=== PATIENT | female | born 1975 | race Caucasian/White ===

== ENCOUNTER 2017-02-04 13:08 | Emergency (ER) | payer SELFPAY ==
[2017-02-04 13:22] VITALS: BP 150/74; BMI 38.4
--- NOTE | 2017-02-04 13:58 | DR.GENAD ---
HPI - PCP Primary Care Physician: NFD - HPI Comment HPI Comment: PATIENT ALSO HAVE PERSISTENT COUGH. TOOK ZITHROMAX BUT NO IMPROVEMENT. STILL PERSISTENT COUGH. NOW ALSO HAVING BOWENS, PND AND ORTHOPNEA. NO FEVER. DENIES EDEMA. COUGH NON PRODUCTIVE. - Complaint/Symptoms Chief Complaint Doctors Comments: SOB AND CHEST PAIN TIMES 3 WEEK. Chief Complaint:: PATIENT STATED THAT SHE CAN'T CATCH HER BREATH. SHE FEELS LIKE SHE IS RATTLEING IN HER CHEST. THIS HAS BEEN GOING ON FOR 2 WEEKS AND NOTHING OVER THE COUNTER IS HELPING. - Nurses notes reviewed Nurses Notes Review: Yes - Source History Provided: Patient - Mode of Arrival Mode of Arrival: Ambulatory - Timing Onset of Chief Complaint: 01/21/17 Came on: Suddenly - Duration Duration: Constant Duration: Weeks - Severity Severity: Moderate PMH - PMH Past Medical History: No Past Surgical History: Yes Surgical History: , Tonsillectomy - Family History History of Family Medical Conditions: Yes Family Medical History: Diabetes Mellitus, [place], Hypertension - Social History Does patient currently use any type of tobacco product: No Have you used tobacco products in the last 12 months: No Type of Tobacco Use: None Does any household member use tobacco: No Alcohol Use: None Do you use any recreational Drugs:: No Lives With: Family Lives Where: Home - infectious screening In the last 2 months have you had wt loss of >10#?: NO Have you had fever, night sweats or hemotysis?: No Have you traveled outside the country in the last 6 months?: No Isolation: Standard ROS - Review of Systems Constitutional: Fever, Weakness, Fatigue. negative: Chills Eyes: negative: Eye Pain, Discharge ENTM: Nose Congestion. negative: Ear Pain, Nose Discharge, Throat Pain Respiratoy: Non-Productive Cough, Short of Breath, Wheezing. negative: Hemoptysis Cardiovascular: Chest Pain, Other (BOWENS.). negative: Edema Gastrointestinal/Abdominal: No Symptoms Reported Genitourinary: No Symptoms Reported Neurological: No Symptoms Reported Musculoskeletal: No Symptoms Reported Integumentary: No Symptoms Reported Hematologic/Lymphatic: No Symptoms Reported Endocrine: No Symptoms Reported All Other Systems: Reviewed and Negative PE - Vital Signs Vitals: Temperature 97.3 F Pulse Rate 110 Respiratory Rate 20 Blood Pressure 150/74 O2 Sat by Pulse Oximetry 100 - General Limitations: No Limitations General Appearance: Alert - Head Head Exam: Normal Inspection - Eyes Eye exam: Normal Appearance - ENT ENT Exam: Normal External Ear Exam External Ear Exam: Normal External Inspection TM/Canal Exam: Bilateral Normal Nose Exam: Normal Nose Exam Mouth Exam: Normal Inspection Throat Exam: Tonsillar Erythema - Neck Neck Exam: Normal Inspection - Chest Chest Inspection: Symmetric Chest Wall Rise - Respiratory Respiratory Exam: Respiratory Distress Respiratory Exam: Bilateral Rhonchi, Upper Rhonchi, Lower Rhonchi - Cardiovascular Cardiovascular Exam: Regular Rate, Normal Rhythm, Normal Heart Sounds - Abdominal Exam Abdominal Exam: Normal Bowel Sounds, Soft. negative: Tenderness - Extremities Extremities Exam: Normal Inspection - Back Back Exam: Normal Inspection - Neurologic Neurological Exam: Alert, Oriented X3 - Psychiatric Psychiatric Exam: Normal Affect, Normal Mood - Skin Skin Exam: Normal Color MDM - Additional Information Additional Information Obtained From: Family - Differential Diagnosis Differential Diagnosis: CHEST PAIN, PNEUMONIA, PEUMOTHORAX, BRONCHITIS Course - Treatment Treatment: SEE ORDERS. - Education/Counseling Education/Counseling: Patient, Family, Education Educated On: Diagnosis ROR - Labs Reviewed Result Diagrams: 02/04/17 15:35 02/04/17 15:35 Laboratory: WBC 8.5 X10^3/uL (3.6-10.0) 02/04/17 15:35 RBC 4.40 X10^6/uL (3.5-5.4) 02/04/17 15:35 Hgb 8.3 g/dL (12.0-16.0) L 02/04/17 15:35 Hct 27.7 % (36.0-47.0) L 02/04/17 15:35 MCV 63.0 fL (80.0-100.0) L 02/04/17 15:35 MCH 18.9 pg (27.0-34.0) L 02/04/17 15:35 MCHC 30.0 g/dL (33.0-35.0) L 02/04/17 15:35 RDW 19.5 % (11.6-16.5) H 02/04/17 15:35 Plt Count 347 X10^3/uL (150.0-450.0) 02/04/17 15:35 Plt Count Comment Adequate (ADEQUATE) 02/04/17 15:35 MPV 7.1 fL (7.4-11.0) L 02/04/17 15:35 Neut % 73.3 % (42.0-75.0) 02/04/17 15:35 Lymph % 19.4 % (21.0-51.0) L 02/04/17 15:35 Harnett % 5.1 % (0.0-13.0) 02/04/17 15:35 Eos % 1.6 % (0.9-2.9) 02/04/17 15:35 Baso % 0.6 % (0.2-1.0) 02/04/17 15:35 Neut # 6.2 x10^3/uL (2.2-4.8) H 02/04/17 15:35 Lymph # 1.7 X10^3/uL (1.3-2.9) 02/04/17 15:35 Harnett # 0.4 x10^3/uL (0.3-0.8) 02/04/17 15:35 Eos # 0.1 x10^3/uL (0.0-0.2) 02/04/17 15:35 Baso # 0.1 X10^3/uL (0.0-0.1) 02/04/17 15:35 Absolute Nucleated RBC 0.0 /100WBC 02/04/17 15:35 Plt Morphology Comment Normal (NORMAL) 02/04/17 15:35 RBC Morphology Abnormal (NORMAL) A 02/04/17 15:35 Hypochromasia 3+ A 02/04/17 15:35 Poikilocytosis 1+ A 02/04/17 15:35 Anisocytosis 1+ A 02/04/17 15:35 Microcytosis 2+ A 02/04/17 15:35 Tear Drop Cells Noted 02/04/17 15:35 Stomatocytes Noted 02/04/17 15:35 Sodium 141 mmol/L (136-145) 02/04/17 15:35 Corrected Sodium TNP 02/04/17 15:35 Potassium 4.2 mmol/L (3.5-5.1) 02/04/17 15:35 Chloride 105 mmol/L (98-107) 02/04/17 15:35 Carbon Dioxide 28.5 mmol/L (21-32) 02/04/17 15:35 BUN 11 mg/dL (7-18) 02/04/17 15:35 Creatinine 0.89 mg/dL (0.55-1.02) 02/04/17 15:35 Est GFR (MDRD) Af Amer > 60 (>60) 02/04/17 15:35 Est GFR (MDRD) Non-Af > 60 (>60) 02/04/17 15:35 Glucose 86 mg/dL (65-99) 02/04/17 15:35 Calcium 9.3 mg/dL (8.5-10.1) 02/04/17 15:35 - XRAY XRAY Findings: REPORT DISCUSS WITH PATIENT. - Diagnosis Discharge Problem: Pulmonary congestion, Cough Chest pain Qualifiers: Chest pain type: intercostal pain Qualified Code(s): R07.82 - Intercostal pain - Discharge Plan Disposition: 01 HOME, SELF-CARE Condition: Stable Prescriptions: Benzonatate [TESSALON PERLES *] 200 mg PO TID PRN #30 cap PRN Reason: Cough Furosemide [Lasix] 20 mg PO QAM #10 tab - Follow ups/Referrals Follow ups/Referrals: NFD,None [Primary Care Provider] - 3 days ARELIS DEVLIN [STAFF PHYSICIAN] - 3 days - Instructions Instructions: Cough, Adult, [id number], Anemia, Nonspecific, Heart Failure, [id number] Additional Instructions: RETURN TO ED IF WORSE.
[2017-02-04 15:43] LABS: BASOPHILS # (AUTO) 0.1 X10^3/uL (0.0-0.1); BASOPHILS % (AUTO) 0.6 % (0.2-1.0); EOSINOPHILS # (AUTO) 0.1 x10^3/uL (0.0-0.2); EOSINOPHILS % (AUTO) 1.6 % (0.9-2.9); HEMATOCRIT 27.7 % (36.0-47.0); HEMOGLOBIN 8.3 g/dL (12.0-16.0); LYMPHOCYTES # (AUTO) 1.7 X10^3/uL (1.3-2.9); LYMPHOCYTES % (AUTO) 19.4 % (21.0-51.0); MEAN CORPUSCULAR HEMOGLOBIN 18.9 pg (27.0-34.0); MEAN PLATELET VOLUME 7.1 fL (7.4-11.0); MONOCYTES # (AUTO) 0.4 x10^3/uL (0.3-0.8); MONOCYTES % (AUTO) 5.1 % (0.0-13.0); NEUTROPHILS # (AUTO) 6.2 x10^3/uL (2.2-4.8); NEUTROPHILS % (AUTO) 73.3 % (42.0-75.0); PLATELET COUNT 347 X10^3/uL (150.0-450.0); RED CELL DISTRIBUTION WIDTH 19.5 % (11.6-16.5); WHITE BLOOD COUNT 8.5 X10^3/uL (3.6-10.0)
[2017-02-04 15:50] LABS: BLOOD UREA NITROGEN 11 mg/dL (7-18); CALCIUM 9.3 mg/dL (8.5-10.1); CARBON DIOXIDE 28.5 mmol/L (21-32); CHLORIDE 105 mmol/L (98-107); CREATININE 0.89 mg/dL (0.55-1.02); SODIUM 141 mmol/L (136-145); eGFR BLACK RACES > 60 (>60); eGFR NON BLACK RACES > 60 (>60)
[2017-02-04 15:57] LABS: HYPOCHROMASIA 3+; PLATELET MORPHOLOGY COMMENT NORMAL (NORMAL); POIKILOCYTOSIS 1+
[2017-02-04 15:58] LABS: ANISOCYTOSIS 1+; MICROCYTOSIS 2+; STOMATOCYTES NOTED; TEAR DROP CELLS NOTED
--- NOTE | 2017-02-04 16:08 | RAD ---
Examination: Chest, PA and lateral views History: Chest pain and cough Findings: Normal heart size. There is mild cephalization of pulmonary blood flow. There is no evidenc e for pneumonia or pulmonary edema or pleural fluid. Impression: Pulmonary vascular congestion. No evidence for pneumonia. Bilateral cervical ribs are inc identally observed. Reported By:
== END 2017-02-04 16:38 | disposition home or self-care (01) ==
LOC: ER 13:24
DX: R07.82 Intercostal pain (principal); R09.89 Other specified symptoms and signs involving the circulatory and respiratory systems; R05 Cough
CPT/HCPCS: 36415; 71020; 80048; 85025; 99282

== ENCOUNTER 2023-04-23 10:59 | Inpatient (IN) ==
[2023-04-23] MEDS ORDERED: CATAPRES TAB 0.1 MG PO ONE (12:15)
[2023-04-23 12:16] LABS: BASOPHILS # (AUTO) 0.1 X10^3/uL (0.0-0.1); BASOPHILS % (AUTO) 0.7 % (0.2-1.0); EOSINOPHILS # (AUTO) 0.1 x10^3/uL (0.0-0.2); EOSINOPHILS % (AUTO) 0.3 % (0.9-2.9); HEMATOCRIT 39.3 % (36.0-47.0); HEMOGLOBIN 11.9 g/dL (12.0-16.0); LYMPHOCYTES # (AUTO) 1.1 X10^3/uL (1.3-2.9); LYMPHOCYTES % (AUTO) 6.4 % (21.0-51.0); MEAN CORPUSCULAR HEMOGLOBIN 25.5 pg (27.0-34.0); MEAN CORPUSCULAR HGB CONC 30.3 g/dL (33.0-35.0); MEAN CORPUSCULAR VOLUME 84.1 fL (80.0-100.0); MEAN PLATELET VOLUME 8.1 fL (7.4-11.0); MONOCYTES # (AUTO) 0.6 x10^3/uL (0.3-0.8); MONOCYTES % (AUTO) 3.3 % (0.0-13.0); NEUTROPHILS # (AUTO) 14.8 x10^3/uL (2.2-4.8); NEUTROPHILS % (AUTO) 89.3 % (42.0-75.0); PLATELET COUNT 317 X10^3/uL (150.0-450.0); RED BLOOD COUNT 4.67 X10^6/uL (3.5-5.4); RED CELL DISTRIBUTION WIDTH 17.6 % (11.6-16.5); WHITE BLOOD COUNT 16.6 X10^3/uL (3.6-10.0)
[2023-04-23 12:26] LABS: ALANINE AMINOTRANSFERASE 36 Units/L (12-78); ALBUMIN 3.6 g/dL (3.4-5.0); ALKALINE PHOSPHATASE 178 Units/L (46-116); ASPARTATE AMINO TRANSFERASE 15 Units/L (15-37); BLOOD UREA NITROGEN 14 mg/dL (7-18); CALCIUM 9.4 mg/dL (8.5-10.1); CARBON DIOXIDE 35.7 mmol/L (21-32); CHLORIDE 100 mmol/L (98-107); COR NA(FOR HYPERGLY) 138 mmol/L (136-145); GLUCOSE 130 mg/dL (65-99); POTASSIUM 4.5 mmol/L (3.5-5.1); SODIUM 137 mmol/L (136-145); TOTAL PROTEIN 8.3 g/dL (6.4-8.2); eGFR NON BLACK RACES > 60 (>60)
[2023-04-23 12:27] LABS: ABG BASE EXCESS 5.9 mmol/L (-2.0-2.0)
[2023-04-23 12:28] LABS: ABG ALLEN TEST POS
--- NOTE | 2023-04-23 13:07 | EKG ---
Test Reason : high blood pressure Blood Pressure : */* mmHG Vent. Rate : 88 BPM Atrial Rate : 88 BPM P-R Int : 150 ms QRS Dur : 60 ms QT Int : 332 ms P-R-T Axes : 47 57 76 degrees QTc Int : 401 ms Normal sinus rhythm Cannot rule out Anterior infarct , age undetermined Abnormal ECG No previous ECGs available Confirmed by Hu Concepcion MD ([id number]) on 04/24/2023 6:33:49 AM Referred By: Confirmed By: Hu Concepcion MD
[2023-04-23] MEDS: DUONEB 0.5 MG/3 MG (3 mL) NEB SCH ×3 (13:36→20:57)
[2023-04-23] MEDS: LEVAQUIN PREMIX IV 750 MG 750 MG/150 ML BAG IV SCH (14:04)
[2023-04-23] MEDS: LR 1,000 ML IV 1,000 ML IV SCH ×2 (14:04→21:51)
--- NOTE | 2023-04-23 16:59 | RAD ---
EXAM:CHEST x-ray, 1 VIEWHISTORY:PNEUMONIA -COMPARISON:Report of prior exam 05/05/2020, images are not availableFINDINGS:Study is limited due to patient's size and portable technique. There is cardiomegaly and probable CHF. There may be pulmonary edema. No definite focal infiltrate is seen. No suggestion of pneumothorax or pleural effusion is seen.IMPRESSION:Probable CHF and pulmonary edema. Pneumonia is not thought to be likely. Continued x-ray follow up may be useful as x-ray appearance of pneumonia often lags clinical symptoms.THIS IS AN ELECTRONICALLY VERIFIED FINAL REPORT04/23/2023 4:56 PM - Electronically signed by Sourav Mireles MD
[2023-04-23 17:14] LABS: ABG BASE EXCESS 5.7 mmol/L (-2.0-2.0)
[2023-04-23 17:15] LABS: ABG HCO3 35.5 mmol/L (22-26)
[2023-04-23] MEDS ORDERED: LASIX IVP ONE (17:31)
[2023-04-23] MEDS ORDERED: LASIX IVP SCH (17:38)
[2023-04-23 19:28] VITALS: BMI 55.7
[2023-04-24] MEDS: TYLENOL 325 MG TAB PO PRN (02:00)
[2023-04-24] MEDS: LR 1,000 ML IV 1,000 ML IV SCH ×4 (04:16→20:57)
[2023-04-24 05:31] LABS: ABG BASE EXCESS 8.5 mmol/L (-2.0-2.0)
[2023-04-24 05:32] LABS: ABG ALLEN TEST POS; ABG HCO3 38.1 mmol/L (22-26)
[2023-04-24 06:26] LABS: MEAN CORPUSCULAR VOLUME 84.9 fL (80.0-100.0); MEAN PLATELET VOLUME 7.9 fL (7.4-11.0)
--- NOTE | 2023-04-24 06:28 | RAD ---
EXAM:Follow-up pneumoniaHISTORY:Chest AP portableCOMPARISON:04/23/2019FINDINGS:Th e heart is enlarged. No definite congestive heart failure is identified on today's examination. No definite acute alveolar infiltrates or pleural effusions are identified. Bony thorax is unremarkable.IMPRESSION:Cardiomegaly without congestive heart failure on today's examinationNo definite infiltratesTHIS IS AN ELECTRONICALLY VERIFIED FINAL REPORT04/24/2023 6:24 AM - Electronically signed by Ino Brown MD
[2023-04-24 06:35] LABS: BASOPHILS # (AUTO) 0.1 X10^3/uL (0.0-0.1); EOSINOPHILS # (AUTO) 0.1 x10^3/uL (0.0-0.2); EOSINOPHILS % (AUTO) 0.6 % (0.9-2.9); HEMOGLOBIN 10.6 g/dL (12.0-16.0); LYMPHOCYTES # (AUTO) 1.2 X10^3/uL (1.3-2.9); MEAN CORPUSCULAR HEMOGLOBIN 25.7 pg (27.0-34.0); MEAN CORPUSCULAR HGB CONC 30.3 g/dL (33.0-35.0); MONOCYTES # (AUTO) 0.8 x10^3/uL (0.3-0.8); MONOCYTES % (AUTO) 6.2 % (0.0-13.0); NEUTROPHILS # (AUTO) 10.1 x10^3/uL (2.2-4.8); NEUTROPHILS % (AUTO) 82.2 % (42.0-75.0); PLATELET COUNT 245 X10^3/uL (150.0-450.0); RED BLOOD COUNT 4.12 X10^6/uL (3.5-5.4); RED CELL DISTRIBUTION WIDTH 17.8 % (11.6-16.5); WHITE BLOOD COUNT 12.3 X10^3/uL (3.6-10.0)
[2023-04-24 06:41] LABS: ALANINE AMINOTRANSFERASE 26 Units/L (12-78); ALKALINE PHOSPHATASE 148 Units/L (46-116); ASPARTATE AMINO TRANSFERASE 12 Units/L (15-37); BLOOD UREA NITROGEN 17 mg/dL (7-18); CALCIUM 8.9 mg/dL (8.5-10.1); CARBON DIOXIDE 35.9 mmol/L (21-32); CHLORIDE 101 mmol/L (98-107); COR CA(FOR HYPOALB) 9.7 mg/dL (8.5-10.1); CREATININE 1.07 mg/dL (0.55-1.02); GLUCOSE 108 mg/dL (65-99); POTASSIUM 4.6 mmol/L (3.5-5.1); SODIUM 138 mmol/L (136-145); TOTAL PROTEIN 7.2 g/dL (6.4-8.2); eGFR NON BLACK RACES 58 (>60)
[2023-04-24] MEDS: DUONEB 0.5 MG/3 MG (3 mL) NEB SCH ×4 (08:54→22:00)
[2023-04-24] MEDS: LEVAQUIN PREMIX IV 750 MG 750 MG/150 ML BAG IV SCH (09:48)
[2023-04-24] MEDS ORDERED: LASIX IVP SCH (17:23)
[2023-04-24] MEDS: KLONOPIN TAB 0.5 MG PO PRN (21:52)
[2023-04-25] MEDS: LR 1,000 ML IV 1,000 ML IV SCH ×6 (00:21→21:41)
[2023-04-25 06:33] LABS: BASOPHILS % (AUTO) 0.4 % (0.2-1.0); EOSINOPHILS # (AUTO) 0.1 x10^3/uL (0.0-0.2); EOSINOPHILS % (AUTO) 0.5 % (0.9-2.9); HEMATOCRIT 34.7 % (36.0-47.0); HEMOGLOBIN 10.5 g/dL (12.0-16.0); LYMPHOCYTES # (AUTO) 1.2 X10^3/uL (1.3-2.9); LYMPHOCYTES % (AUTO) 10.2 % (21.0-51.0); MEAN CORPUSCULAR HEMOGLOBIN 25.5 pg (27.0-34.0); MEAN CORPUSCULAR HGB CONC 30.2 g/dL (33.0-35.0); MEAN CORPUSCULAR VOLUME 84.2 fL (80.0-100.0); MONOCYTES # (AUTO) 0.7 x10^3/uL (0.3-0.8); NEUTROPHILS # (AUTO) 9.8 x10^3/uL (2.2-4.8); NEUTROPHILS % (AUTO) 82.9 % (42.0-75.0); PLATELET COUNT 250 X10^3/uL (150.0-450.0); RED BLOOD COUNT 4.13 X10^6/uL (3.5-5.4); RED CELL DISTRIBUTION WIDTH 17.1 % (11.6-16.5); WHITE BLOOD COUNT 11.8 X10^3/uL (3.6-10.0)
[2023-04-25 06:49] LABS: ALANINE AMINOTRANSFERASE 33 Units/L (12-78); ALBUMIN 2.9 g/dL (3.4-5.0); ALKALINE PHOSPHATASE 141 Units/L (46-116); ASPARTATE AMINO TRANSFERASE 19 Units/L (15-37); BLOOD UREA NITROGEN 17 mg/dL (7-18); CALCIUM 9.3 mg/dL (8.5-10.1); CARBON DIOXIDE 35.7 mmol/L (21-32); CHLORIDE 100 mmol/L (98-107); COR CA(FOR HYPOALB) 10.2 mg/dL (8.5-10.1); CREATININE 0.94 mg/dL (0.55-1.02); GLUCOSE 99 mg/dL (65-99); POTASSIUM 4.4 mmol/L (3.5-5.1); SODIUM 137 mmol/L (136-145); TOTAL PROTEIN 7.3 g/dL (6.4-8.2); eGFR NON BLACK RACES > 60 (>60)
[2023-04-25] MEDS: DUONEB 0.5 MG/3 MG (3 mL) NEB SCH ×4 (09:45→21:20)
[2023-04-25] MEDS: LASIX PO SCH (10:01)
[2023-04-25] MEDS: LEVAQUIN PREMIX IV 750 MG 750 MG/150 ML BAG IV SCH (10:01)
[2023-04-25] MEDS ORDERED: ZOFRAN INJ 4 MG VIAL IVP PRN (14:47)
[2023-04-26] MEDS: LR 1,000 ML IV 1,000 ML IV SCH ×5 (01:15→20:19)
[2023-04-26 05:31] LABS: BASOPHILS % (AUTO) 0.4 % (0.2-1.0); EOSINOPHILS % (AUTO) 0.4 % (0.9-2.9); HEMATOCRIT 32.8 % (36.0-47.0); HEMOGLOBIN 10.1 g/dL (12.0-16.0); LYMPHOCYTES # (AUTO) 1.1 X10^3/uL (1.3-2.9); LYMPHOCYTES % (AUTO) 9.4 % (21.0-51.0); MEAN CORPUSCULAR HEMOGLOBIN 25.5 pg (27.0-34.0); MEAN CORPUSCULAR HGB CONC 30.8 g/dL (33.0-35.0); MEAN PLATELET VOLUME 7.7 fL (7.4-11.0); MONOCYTES # (AUTO) 0.8 x10^3/uL (0.3-0.8); NEUTROPHILS # (AUTO) 9.3 x10^3/uL (2.2-4.8); NEUTROPHILS % (AUTO) 82.8 % (42.0-75.0); PLATELET COUNT 264 X10^3/uL (150.0-450.0); RED BLOOD COUNT 3.95 X10^6/uL (3.5-5.4); RED CELL DISTRIBUTION WIDTH 17.4 % (11.6-16.5); WHITE BLOOD COUNT 11.3 X10^3/uL (3.6-10.0)
[2023-04-26 05:38] LABS: ALANINE AMINOTRANSFERASE 31 Units/L (12-78); ALBUMIN 2.8 g/dL (3.4-5.0); ALKALINE PHOSPHATASE 124 Units/L (46-116); ASPARTATE AMINO TRANSFERASE 16 Units/L (15-37); BLOOD UREA NITROGEN 17 mg/dL (7-18); CARBON DIOXIDE 35.7 mmol/L (21-32); CHLORIDE 101 mmol/L (98-107); COR NA(FOR HYPERGLY) 137 mmol/L (136-145); GLUCOSE 119 mg/dL (65-99); POTASSIUM 4.3 mmol/L (3.5-5.1); SODIUM 137 mmol/L (136-145); TOTAL PROTEIN 6.8 g/dL (6.4-8.2); eGFR NON BLACK RACES > 60 (>60)
[2023-04-26] MEDS: TYLENOL 325 MG TAB PO PRN ×3 (06:07→19:14)
[2023-04-26] MEDS: LASIX PO SCH (08:55)
[2023-04-26] MEDS: LEVAQUIN PREMIX IV 750 MG 750 MG/150 ML BAG IV SCH (08:55)
[2023-04-26] MEDS: DUONEB 0.5 MG/3 MG (3 mL) NEB SCH ×4 (09:05→20:10)
[2023-04-26] MEDS: KLONOPIN TAB 0.5 MG PO PRN (20:23)
[2023-04-27] MEDS: LR 1,000 ML IV 1,000 ML IV SCH ×4 (01:59→19:28)
[2023-04-27 05:16] LABS: BASOPHILS % (AUTO) 0.4 % (0.2-1.0); EOSINOPHILS # (AUTO) 0.1 x10^3/uL (0.0-0.2); EOSINOPHILS % (AUTO) 0.8 % (0.9-2.9); HEMATOCRIT 32.1 % (36.0-47.0); HEMOGLOBIN 9.9 g/dL (12.0-16.0); LYMPHOCYTES % (AUTO) 9.6 % (21.0-51.0); MEAN CORPUSCULAR VOLUME 83.8 fL (80.0-100.0); MEAN PLATELET VOLUME 7.7 fL (7.4-11.0); MONOCYTES # (AUTO) 0.6 x10^3/uL (0.3-0.8); NEUTROPHILS # (AUTO) 8.7 x10^3/uL (2.2-4.8); NEUTROPHILS % (AUTO) 83.2 % (42.0-75.0); PLATELET COUNT 247 X10^3/uL (150.0-450.0); RED BLOOD COUNT 3.83 X10^6/uL (3.5-5.4); WHITE BLOOD COUNT 10.5 X10^3/uL (3.6-10.0)
[2023-04-27 05:25] LABS: ALANINE AMINOTRANSFERASE 29 Units/L (12-78); ALBUMIN 2.7 g/dL (3.4-5.0); ALKALINE PHOSPHATASE 111 Units/L (46-116); ASPARTATE AMINO TRANSFERASE 13 Units/L (15-37); BLOOD UREA NITROGEN 14 mg/dL (7-18); CALCIUM 8.8 mg/dL (8.5-10.1); CHLORIDE 98 mmol/L (98-107); COR CA(FOR HYPOALB) 9.8 mg/dL (8.5-10.1); COR NA(FOR HYPERGLY) 140 mmol/L (136-145); CREATININE 0.96 mg/dL (0.55-1.02); GLUCOSE 129 mg/dL (65-99); POTASSIUM 4.2 mmol/L (3.5-5.1); SODIUM 139 mmol/L (136-145); TOTAL PROTEIN 6.8 g/dL (6.4-8.2); eGFR NON BLACK RACES > 60 (>60)
--- NOTE | 2023-04-27 05:35 | RAD ---
EXAM:Portable AP chestHISTORY:PneumoniaCOMPARISON: 024FINDINGS:Similar cardiomegaly. The central pulmonary vessels are mildly prominent without evidence for segmental or lobar pulmonary consolidation, or pleural effusion.IMPRESSION:No change. A localized pneumonia is not identified on this follow-up exam.THIS IS AN ELECTRONICALLY VERIFIED FINAL REPORT04/27/2023 5:31 AM - Electronically signed by Ty Singer MD
[2023-04-27] MEDS: LASIX PO SCH (08:34)
[2023-04-27] MEDS: TYLENOL 325 MG TAB PO PRN (08:34)
[2023-04-27] MEDS: LEVAQUIN PREMIX IV 750 MG 750 MG/150 ML BAG IV SCH (08:34)
[2023-04-27] MEDS: DUONEB 0.5 MG/3 MG (3 mL) NEB SCH ×4 (08:55→20:06)
[2023-04-27] MEDS: KLONOPIN TAB 0.5 MG PO PRN (20:12)
[2023-04-28] MEDS: LR 1,000 ML IV 1,000 ML IV SCH ×3 (04:29→20:31)
[2023-04-28 05:14] LABS: BASOPHILS % (AUTO) 0.4 % (0.2-1.0); EOSINOPHILS # (AUTO) 0.1 x10^3/uL (0.0-0.2); HEMATOCRIT 33.7 % (36.0-47.0); HEMOGLOBIN 10.4 g/dL (12.0-16.0); LYMPHOCYTES # (AUTO) 0.8 X10^3/uL (1.3-2.9); LYMPHOCYTES % (AUTO) 7.6 % (21.0-51.0); MEAN CORPUSCULAR HEMOGLOBIN 26.1 pg (27.0-34.0); MEAN CORPUSCULAR VOLUME 84.1 fL (80.0-100.0); MONOCYTES # (AUTO) 0.5 x10^3/uL (0.3-0.8); MONOCYTES % (AUTO) 4.5 % (0.0-13.0); NEUTROPHILS # (AUTO) 9.2 x10^3/uL (2.2-4.8); NEUTROPHILS % (AUTO) 86.5 % (42.0-75.0); PLATELET COUNT 266 X10^3/uL (150.0-450.0); RED CELL DISTRIBUTION WIDTH 16.9 % (11.6-16.5); WHITE BLOOD COUNT 10.6 X10^3/uL (3.6-10.0)
[2023-04-28 05:32] LABS: ALANINE AMINOTRANSFERASE 31 Units/L (12-78); ALBUMIN 2.8 g/dL (3.4-5.0); ALKALINE PHOSPHATASE 117 Units/L (46-116); ASPARTATE AMINO TRANSFERASE 14 Units/L (15-37); BLOOD UREA NITROGEN 18 mg/dL (7-18); CALCIUM 9.3 mg/dL (8.5-10.1); CARBON DIOXIDE 38.8 mmol/L (21-32); CHLORIDE 100 mmol/L (98-107); COR CA(FOR HYPOALB) 10.3 mg/dL (8.5-10.1); COR NA(FOR HYPERGLY) 140 mmol/L (136-145); CREATININE 1.09 mg/dL (0.55-1.02); GLUCOSE 124 mg/dL (65-99); POTASSIUM 4.1 mmol/L (3.5-5.1); SODIUM 139 mmol/L (136-145); TOTAL PROTEIN 7.1 g/dL (6.4-8.2); eGFR NON BLACK RACES 57 (>60)
[2023-04-28] MEDS: LASIX PO SCH (07:59)
[2023-04-28] MEDS: LEVAQUIN PREMIX IV 750 MG 750 MG/150 ML BAG IV SCH (08:00)
[2023-04-28] MEDS: DUONEB 0.5 MG/3 MG (3 mL) NEB SCH ×4 (09:10→20:00)
[2023-04-28] MEDS: LEXAPRO PO SCH (13:12)
[2023-04-28] MEDS ORDERED: LEXAPRO ONE (13:13)
[2023-04-28] MEDS: KLONOPIN TAB 0.5 MG PO PRN (20:30)
[2023-04-29] MEDS: TYLENOL 325 MG TAB PO PRN (03:26)
[2023-04-29] MEDS: LR 1,000 ML IV 1,000 ML IV SCH ×3 (04:45→20:47)
[2023-04-29 06:20] LABS: BASOPHILS % (AUTO) 0.4 % (0.2-1.0); EOSINOPHILS # (AUTO) 0.1 x10^3/uL (0.0-0.2); EOSINOPHILS % (AUTO) 1.2 % (0.9-2.9); HEMOGLOBIN 10.8 g/dL (12.0-16.0); LYMPHOCYTES # (AUTO) 0.9 X10^3/uL (1.3-2.9); LYMPHOCYTES % (AUTO) 8.5 % (21.0-51.0); MEAN CORPUSCULAR HEMOGLOBIN 25.7 pg (27.0-34.0); MEAN CORPUSCULAR HGB CONC 30.7 g/dL (33.0-35.0); MEAN CORPUSCULAR VOLUME 83.7 fL (80.0-100.0); MEAN PLATELET VOLUME 7.7 fL (7.4-11.0); MONOCYTES # (AUTO) 0.5 x10^3/uL (0.3-0.8); NEUTROPHILS # (AUTO) 8.8 x10^3/uL (2.2-4.8); NEUTROPHILS % (AUTO) 84.9 % (42.0-75.0); PLATELET COUNT 247 X10^3/uL (150.0-450.0); RED BLOOD COUNT 4.18 X10^6/uL (3.5-5.4); RED CELL DISTRIBUTION WIDTH 17.2 % (11.6-16.5); WHITE BLOOD COUNT 10.4 X10^3/uL (3.6-10.0)
[2023-04-29 06:30] LABS: ALANINE AMINOTRANSFERASE 29 Units/L (12-78); ALKALINE PHOSPHATASE 124 Units/L (46-116); ASPARTATE AMINO TRANSFERASE 16 Units/L (15-37); BLOOD UREA NITROGEN 17 mg/dL (7-18); CALCIUM 9.2 mg/dL (8.5-10.1); CHLORIDE 102 mmol/L (98-107); COR NA(FOR HYPERGLY) 140 mmol/L (136-145); CREATININE 0.93 mg/dL (0.55-1.02); GLUCOSE 123 mg/dL (65-99); POTASSIUM 4.8 mmol/L (3.5-5.1); SODIUM 139 mmol/L (136-145); TOTAL PROTEIN 7.4 g/dL (6.4-8.2); eGFR NON BLACK RACES > 60 (>60)
[2023-04-29 06:54] LABS: ANISOCYTOSIS SLIGHT; BAND NEUTROPHILS % 1 % (0-10); BASOPHILS % (MANUAL) 1 % (0-1); HYPOCHROMASIA SLIGHT; PLATELET MORPHOLOGY COMMENT NORMAL (NORMAL)
[2023-04-29] MEDS ORDERED: LEXAPRO ONE (08:04)
[2023-04-29] MEDS: LASIX PO SCH (08:08)
[2023-04-29] MEDS: LEVAQUIN PREMIX IV 750 MG 750 MG/150 ML BAG IV SCH (08:08)
[2023-04-29] MEDS: LEXAPRO PO SCH (08:09)
[2023-04-29] MEDS: DUONEB 0.5 MG/3 MG (3 mL) NEB SCH ×4 (08:12→20:45)
[2023-04-29] MEDS: VIBRAMYCIN PO SCH ×2 (10:12→20:51)
--- NOTE | 2023-04-29 10:33 | CT ---
EXAM:SINUS W/O CONHISTORY:PRODUCTIVE COUGH;COMPARISON:No relevant prior studies were available for comparison at the time of interpretation..TECHNIQUE:CT images were obtained. Multiplanar reconstructions were created on a separate workstation and used during interpretation. All CT scans at this facility is dose modulation, iterative reconstruction, and/or weight-based dosing as appropriate to reduce radiation to levels as low as reasonably achievable (ALARA). Postprocessing details, radiation dose, and contrast dose (if applicable) are recorded in the patient's medical record.FINDINGS:Surgical changes: NoneNasal cavity: Nasal septum is midline. No significant mucosal thickening or polypsSinuses:Maxillary: Grossly clear. No fluid levels.Sphenoid: Grossly clear. No fluid levels.Ethmoid: Grossly clear. No fluid levels.Frontal: Grossly clear. No fluid levels.Ostiomeatal units: PatentBones and soft tissues: Nasal bones are intact. Maxilla intact. Visualized portions of the mandible intact. Imaged portions of the calvarium intact. Skull base is intact. Pterygoid plates are intact. Zygomatic arches are intact. No acute soft tissue abnormality.Orbits and intracranial contents: Bony orbits and globes are intact. Orbital structures unremarkable. No acute intracranial abnormality identified.IMPRESSION:1. No evidence of sinusitisTHIS IS AN ELECTRONICALLY VERIFIED FINAL REPORT04/29/2023 10:30 AM - Electronically signed by Milton Cueva MD
[2023-04-30] MEDS: TYLENOL 325 MG TAB PO PRN (00:52)
[2023-04-30] MEDS: LR 1,000 ML IV 1,000 ML IV SCH ×2 (05:11→09:00)
[2023-04-30 06:19] LABS: BASOPHILS % (AUTO) 0.4 % (0.2-1.0); EOSINOPHILS # (AUTO) 0.1 x10^3/uL (0.0-0.2); HEMATOCRIT 34.9 % (36.0-47.0); HEMOGLOBIN 10.6 g/dL (12.0-16.0); LYMPHOCYTES % (AUTO) 10.4 % (21.0-51.0); MEAN CORPUSCULAR HEMOGLOBIN 25.3 pg (27.0-34.0); MEAN CORPUSCULAR HGB CONC 30.2 g/dL (33.0-35.0); MEAN CORPUSCULAR VOLUME 83.8 fL (80.0-100.0); MONOCYTES # (AUTO) 0.5 x10^3/uL (0.3-0.8); MONOCYTES % (AUTO) 5.1 % (0.0-13.0); NEUTROPHILS % (AUTO) 83.1 % (42.0-75.0); PLATELET COUNT 235 X10^3/uL (150.0-450.0); RED BLOOD COUNT 4.17 X10^6/uL (3.5-5.4); RED CELL DISTRIBUTION WIDTH 17.1 % (11.6-16.5); WHITE BLOOD COUNT 9.7 X10^3/uL (3.6-10.0)
[2023-04-30 06:33] LABS: ALANINE AMINOTRANSFERASE 30 Units/L (12-78); ALBUMIN 2.9 g/dL (3.4-5.0); ALKALINE PHOSPHATASE 118 Units/L (46-116); ASPARTATE AMINO TRANSFERASE 11 Units/L (15-37); BLOOD UREA NITROGEN 18 mg/dL (7-18); CALCIUM 9.4 mg/dL (8.5-10.1); CARBON DIOXIDE 37.8 mmol/L (21-32); CHLORIDE 103 mmol/L (98-107); COR CA(FOR HYPOALB) 10.3 mg/dL (8.5-10.1); COR NA(FOR HYPERGLY) 141 mmol/L (136-145); CREATININE 0.84 mg/dL (0.55-1.02); GLUCOSE 111 mg/dL (65-99); POTASSIUM 4.5 mmol/L (3.5-5.1); SODIUM 141 mmol/L (136-145); TOTAL PROTEIN 7.1 g/dL (6.4-8.2); eGFR NON BLACK RACES > 60 (>60)
--- NOTE | 2023-04-30 06:47 | RAD ---
EXAM:CHEST, PA/LAT ADULTHISTORY:PNEUMONIA;COMPARISON:2023 CXRTECHNIQUE:2 views of the chestFINDINGS:Cardiac silhouette is mildly enlarged. Mediastinal contours appear normal. There is mild subsegmental atelectasis in the left base. Right base patchy opacity may represent atelectasis or infiltrate. No definite pleural effusion or pneumothorax. Soft tissue attenuation from the chest wall limits evaluation.IMPRESSION:Patchy right base opacity may represent atelectasis or pneumonia. Recommend follow-up imaging to document resolution after appropriate treatment.THIS IS AN ELECTRONICALLY VERIFIED FINAL REPORT04/30/2023 6:44 AM - Electronically signed by Bereket Parker MD
--- NOTE | 2023-04-30 07:24 | RAD ---
EXAM: CHEST, PA/LAT ADULT HISTORY: PNEUMONIA; COMPARISON: 04/29/2023. TECHNIQUE: One-view chest. FINDINGS: Cardiac silhouette is mildly enlarged. Linear left midlung opacity likely subsegmental atelectasis. Resolved patchy right base opacity radiographically. No definite pleural effusion or pneumothorax. Soft tissue attenuation from the chest wall limits evaluation. IMPRESSION: Left midlung subsegmental atelectasis. THIS IS AN ELECTRONICALLY VERIFIED FINAL REPORT 04/30/2023 7:21 AM - Electronically signed by Bereket Parker MD
[2023-04-30] MEDS ORDERED: LEXAPRO ONE (08:17)
[2023-04-30] MEDS: DUONEB 0.5 MG/3 MG (3 mL) NEB SCH (08:19)
[2023-04-30 08:21] VITALS: PULSE 92; O2SAT 99
[2023-04-30 08:52] VITALS: BP 129/64; RESP 24; TEMP 97.8
[2023-04-30] MEDS: LEXAPRO PO SCH (08:54)
[2023-04-30] MEDS: VIBRAMYCIN PO SCH (08:54)
[2023-04-30] MEDS: LEVAQUIN PREMIX IV 750 MG 750 MG/150 ML BAG IV SCH (08:54)
[2023-04-30] MEDS: LASIX PO SCH (08:54)
== END 2023-04-30 13:10 | disposition home or self-care (01) | DRG 195 ==
LOC: MED/SURG → OBSVTOIN 11:01
PROVIDERS: ADMIT Obstetrics & Gynecology Obstetrics; ATTEND Obstetrics & Gynecology Obstetrics
DX: J14 Pneumonia due to Hemophilus influenzae; J44.9 Chronic obstructive pulmonary disease, unspecified; R06.02 Shortness of breath; R09.02 Hypoxemia